=== PATIENT | female | born 1960 | race Caucasian/White ===

== ENCOUNTER 2017-02-27 19:05 | Emergency (ER) | payer SELFPAY ==
[~2017-02-27] VITALS: Ht 162.6 cm; Wt 61.0 kg
[2017-02-27 19:37] LABS: GLUCOSE,POINT OF CARE 278 MG/DL (70-110)
[2017-02-27] MEDS ORDERED: METF500T4 PO (19:47)
[2017-02-27] MEDS ORDERED: IBUPROFEN 600 MG TABLET PO ONE (22:45)
[2017-02-28 00:28] VITALS: BP 138/78
== END 2017-02-28 00:30 | disposition home or self-care (01) ==
LOC: EMS 19:10
DX: S13.4XXA Sprain of ligaments of cervical spine, initial encounter (principal); S33.5XXA Sprain of ligaments of lumbar spine, initial encounter; S29.011A Strain of muscle and tendon of front wall of thorax, initial encounter; E11.65 Type 2 diabetes mellitus with hyperglycemia; V49.50XA Passenger injured in collision with unspecified motor vehicles in traffic accident, initial encounter; Y93.89 Activity, other specified; Y92.89 Other specified places as the place of occurrence of the external cause; Y99.8 Other external cause status
CPT/HCPCS: 71120; 72040; 72070; 72100; 82962; 99284